=== PATIENT | female | born 1945 | race Caucasian/White ===

== ENCOUNTER → 2017-10-27 | Outpatient (CLI) | payer MEDICARE, OTHER ==
[~2017-10-27] MED LIST: CALC-41 PO; CEPH-13 PO; CHOL200022 PO; CYAN500T38 SL; HYDR-385 PO; HYDR-4309 PO; HYDR-67 PO; LATODPT OD; LEVO50TA80 PO; MET500 PO; OMEP-218 PO; ONDA4TAB PO; PRAV20TA65 PO; SUCR1TAB85 PO; TRAM-420 PO
--- NOTE | 2017-10-28 11:06 | RADIOLOGY IMAGING REPORT ---
[place] [facility] [place] NAME: KRYSTIN HARPER : [id number] MR: [id number] V: [id number] EXAM DATE: [id number] ORDERING PHYSICIAN: INOCENTE VALVERDE TECHNOLOGIST: Anna Palomo PROCEDURE:LEFT DIGITAL DIAGNOSTIC MAMMOGRAM WITH CAD AND 3D BREAST TOMOSYNTHESIS. COMPARISON:Prior mammograms dated 06/12/17, 05/19/16, 05/09/15, 05/24/14, 04/27/13 and 10/20/12. INDICATIONS:LEFT BREAST PAIN. FINDINGS: Moderately dense fibroglandular tissue is seen throughout the left breast. The parenchymal pattern has remained stable when allowing for difference in mammographic technique and patient positioning. There is no evidence of malignant appearing mass, malignant appearing calcification or secondary sign of malignancy in the left breast. Left breast ultrasound demonstrated no sonographic abnormality therefore clinical followup recommended for patient's left breast pain. DIAGNOSTIC CATEGORY 3--PROBABLY BENIGN FINDING. RECOMMENDATIONS: CLINICAL EVALUATION. EIGHT MONTH FOLLOW-UP DIAGNOSTIC MAMMOGRAM: BILATERAL BREASTS. IMPRESSION: BI-RADS 3: Clinical followup recommended for patient's breast pain. The patient will be due for her annual mammogram in May of 2018. Dictated by: Lisa Quigley M.D. on 10/27/2017 at 16:19 Transcribed by: MELVA on 10/27/2017 at 18:20 Approved by: Lisa Quigley M.D. on 10/28/2017 at 11:05 [facility]
--- NOTE | 2017-10-28 11:06 | RADIOLOGY IMAGING REPORT ---
[place] [facility] [place] NAME: KRYSTIN HARPER : [id number] MR: [id number] V: [id number] EXAM DATE: [id number] ORDERING PHYSICIAN: INOCENTE VALVERDE TECHNOLOGIST: Yun Nichole PROCEDURE:LEFT BREAST ULTRASOUND COMPARISON:None INDICATIONS:LEFT BREAST PAIN. FINDINGS: No sonographic abnormality is identified in the left breast to account for patient's left breast pain therefore clinical followup recommended. DIAGNOSTIC CATEGORY 3--PROBABLY BENIGN FINDING. RECOMMENDATIONS: CLINICAL EVALUATION. EIGHT MONTH FOLLOW-UP DIAGNOSTIC MAMMOGRAM: BILATERAL BREASTS. IMPRESSION: Bi-RADS 3: Clinical followup recommended for patient's left breast pain. Of note the patient will be due for her annual mammogram in May of 2018. Dictated by: Lisa Quigley M.D. on 10/27/2017 at 16:23 Transcribed by: MELVA on 10/27/2017 at 18:29 Approved by: Lisa Quigley M.D. on 10/28/2017 at 11:05 [facility]
== END ==
LOC: MAMO 02:08
PROVIDERS: ATTEND Nurse Practitioner Family
DX: N64.4 Mastodynia (principal)
CPT/HCPCS: 77065

== ENCOUNTER → 2018-05-12 | Outpatient (CLI) | payer MEDICARE, OTHER ==
--- NOTE | 2018-05-12 16:53 | RADIOLOGY IMAGING REPORT ---
FACILITY: [facility] PATIENT NAME: KYRSTIN HARPER : [id number] MR: [id number] V: [id number] EXAM DATE: [id number] ORDERING PHYSICIAN: INOCENTE VALVERDE TECHNOLOGIST: Kathleen Chapman PROCEDURE:BILATERAL DIAGNOSTIC DIGITAL MAMMOGRAM WITH CAD ASSISTED INTERPRETATION & 3D TOMOSYNTHESIS COMPARISON:Prior mammograms 10/27/17, 06/12/17, 05/19/16, 05/09/15, 05/24/14, 04/27/13. INDICATIONS:LEFT BREAST PAIN FINDINGS: Moderately dense fibroglandular tissue is seen throughout the breasts. The parenchymal pattern has remained stable allowing for difference in mammographic technique & patient positioning. There is no demonstration of malignant appearing mass, malignant appearing calcifications or other secondary sign of malignancy in either breast. DIAGNOSTIC CATEGORY 1--NEGATIVE. RECOMMENDATIONS: ROUTINE MAMMOGRAM AND CLINICAL EVALUATION. CLINICAL EVALUATION. IMPRESSION: BIRADS 1: Negative. No significant abnormality identified in the Left breast. Today's Left breast Ultrasound also revealed no sonographic abnormality to account for patient's Left breast pain. The patient did express the desire to have an MR of the breasts. Therefore this should be discussed with her clinical child care associate teacher. Dictated by: Lisa Quigley M.D. on 05/12/2018 at 14:30 Transcribed by: JONELLE on 05/12/2018 at 14:38 Approved by: Lisa Quigley M.D. on 05/12/2018 at 16:52 [facility]
--- NOTE | 2018-05-12 16:54 | RADIOLOGY IMAGING REPORT ---
FACILITY: [facility] [place] PATIENT NAME: KRYSTIN HARPER : [id number] MR: [id number] V: [id number] EXAM DATE: [id number] ORDERING PHYSICIAN: INOCENTE VALVERDE TECHNOLOGIST: Mayra Lopez RDMS PROCEDURE:US LEFT BREAST COMPARISON:None. INDICATIONS:Pain in Left breast upper outer quadrant. FINDINGS: The Left breast was imaged in the 12-3 o'clock position revealing no sonographic abnormality cystic or solid. Clinical follow-up recommended for patient's Left breast pain. DIAGNOSTIC CATEGORY 1--NEGATIVE. RECOMMENDATIONS: ROUTINE MAMMOGRAM AND CLINICAL EVALUATION. CLINICAL EVALUATION. IMPRESSION: BIRADS 1: Negative. No sonographic abnormality identified in the upper outer quadrant of the Left breast to account for patient's Left breast pain. Dictated by: Lisa Quigley M.D. on 05/12/2018 at 14:29 Transcribed by: JONELLE on 05/12/2018 at 14:41 Approved by: Lisa Quigley M.D. on 05/12/2018 at 16:52 [facility]
== END ==
LOC: MAMO 02:39
PROVIDERS: ATTEND Nurse Practitioner Family
DX: N60.02 Solitary cyst of left breast (principal); N64.4 Mastodynia
CPT/HCPCS: 77062; 77066

== ENCOUNTER → 2018-09-08 | Outpatient (CLI) | payer MEDICARE, OTHER ==
[~2018-09-08] MED LIST changes: +CHOL200018 PO; -CHOL200022 PO; -HYDR-4309 PO; +HYDR-653 PO
--- NOTE | 2018-09-08 11:07 | RADIOLOGY IMAGING REPORT ---
FACILITY: [facility] - [place] PATIENT NAME: Tonia Mcclure : 1945 MR: [id number] V: [id number] EXAM DATE: ORDERING PHYSICIAN: INOCENTE VALVERDE TECHNOLOGIST: [place] [facility] [place] Patient: Tonia Mcclure : 1945 Visit/Account:[id number] Date of Sevice: 09/08/2018 GALLBLADDER HISTORY: Elevated LFTs, right upper quadrant pain x2 days, nausea off and on x6 months COMPARISON: June 19, 2016 FINDINGS: Gallbladder: Unremarkable; no stones or sludge. Liver: Negative. Common duct: Normal, 1.9 mm diameter. Pancreas: Partially obscured by bowel, visualized aspects unremarkable. Right kidney: Right kidney appears unremarkable measuring 9.7 cm in length Upper abdominal aorta and IVC: Patent. Ascites: None visualized. IMPRESSION: Unremarkable right upper quadrant ultrasound Report Dictated By: Lisa Quigley MD at 09/08/2018 11:01 AM Report E-Signed By: Lisa Quigley MD at 09/08/2018 11:02 AM WSN:[email or web address]
== END ==
LOC: US 00:50
PROVIDERS: ATTEND Nurse Practitioner Family
DX: R74.8 Abnormal levels of other serum enzymes (principal)
CPT/HCPCS: 76705

== ENCOUNTER → 2018-10-06 | Outpatient (CLI) | payer MEDICARE, OTHER ==
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
== END ==
LOC: RAD 08:59
PROVIDERS: ATTEND Nurse Practitioner Family
DX: R07.81 Pleurodynia (principal)
CPT/HCPCS: 71100